=== PATIENT | female | born 1970 ===

== ENCOUNTER 2017-08-06 11:43 | Emergency (ER) | payer MEDICAID ==
[2017-08-06 11:43] VITALS: BMI 21.2
[2017-08-06 11:55] VITALS: TEMP 98.7
--- NOTE | 2017-08-06 12:41 | C.PDOC ---
History Of Present Illness 47 year old female presents to the ED with complaints of low back pain for two days that radiates down the left leg. Patient also notes dysuria since yesterday , and took Advil with no relief. She denies injury, incontinence, weakness, or numbness. Time Seen by Provider: 08/06/17 12:21 Chief Complaint (Nursing): Back Pain History Per: Patient History/Exam Limitations: no limitations Onset/Duration Of Symptoms: Days (2 days ) Current Symptoms Are (Timing): Still Present Quality Of Discomfort: "Pain" Previous Symptoms: None Exacerbating Factor(s): Nothing Recent travel outside of the [place]: No Past Medical History Reviewed: Historical Data, Nursing Documentation, Vital Signs Vital Signs: Last Vital Signs Temp 98.7 F 08/06/17 11:54 Pulse 99 H 08/06/17 11:54 Resp 18 08/06/17 11:54 BP 135/86 08/06/17 11:54 Pulse Ox 100 08/06/17 13:09 - Medical History PMH: Kidney Stones, Seizures (??not recently) Surgical History: No Surg Hx - [facility] Procedures CERVICAL LES CAUTERIZAT (09/26/14) Family History: States: Unknown Family Hx - Social History Hx Tobacco Use: No Hx Alcohol Use: No Hx Substance Use: No - Immunization History Hx Tetanus Toxoid Vaccination: No Hx Influenza Vaccination: No Hx Pneumococcal Vaccination: No Review Of Systems Constitutional: Negative for: Fever, Chills Cardiovascular: Negative for: Chest Pain Respiratory: Negative for: Shortness of Breath Gastrointestinal: Negative for: Nausea, Vomiting, Abdominal Pain Genitourinary: Positive for: Dysuria. Negative for: Incontinence Musculoskeletal: Positive for: Back Pain, Leg Pain (radiating from back ) Neurological: Negative for: Weakness, Numbness Physical Exam - Physical Exam Appears: Non-toxic, Other (Patient appears uncomfortable ) Skin: Warm, Dry Head: Atraumatic, Normacephalic Eye(s): bilateral: Normal Inspection, EOMI Nose: Normal Oral Mucosa: Moist Neck: Normal ROM, Supple Chest: Symmetrical, No Deformity Cardiovascular: Rhythm Regular, No Murmur Respiratory: Normal Breath Sounds, No Rales, No Rhonchi, No Wheezing Gastrointestinal/Abdominal: Soft, No Tenderness (no suprapubic tenderness), No Distention, No Guarding, No Rebound Back: Vertebral Tenderness (lumbosacral tenderness), No Decreased ROM, No Paraspinal Tenderness Extremity: Normal ROM, No Tenderness Neurological/Psych: Oriented x3, Normal Speech Gait: Steady ED Course And Treatment O2 Sat by Pulse Oximetry: 100 (room air ) Pulse Ox Interpretation: Normal Progress Note: UA was ordered and patient was given Tylenol, Flexeril, and Toradol. Reevaluation Time: 13:09 Reassessment Condition: Improved (Patient reports pain has much improved. She is ambulatory without signs of discomfort. UA was negative. Advise patient on rest, can apply heating pad to area and will be discharged with Rx Motrin and Flexeril) Disposition Counseled Patient/Family Regarding: Diagnosis, Need For Followup, Rx Given - Disposition Referrals: Kimber Curtis [Staff Provider] - Disposition: HOME/ ROUTINE Disposition Time: 13:15 Condition: STABLE Additional Instructions: Please take Motrin 600mh every 8 hours for pain Flexeril is muscle relaxant which can be taken every 8 hours as needed for muscular pain and spasm, caution can make you drowsy Follow up with your primary medical doctor or clinic in 2-5 days for further evaluation. Return to the emergency department at any time if symptoms persist or worsen Prescriptions: Cyclobenzaprine [Cyclobenzaprine HCl] 10 mg PO TID #21 tab Ibuprofen [Motrin] 600 mg PO Q8 #30 tab Instructions: Sciatica (ED) Forms: [facility] (Polish) - POA Present On Arrival: None - Clinical Impression Clinical Impression: Low back pain, Sciatica - PA / DELIVERY AND INSTALLATION SUBCONTRACTOR / Resident Statement MD/DO has reviewed & agrees with the documentation as recorded. - Scribe Statement The provider has reviewed the documentation as recorded by the Scribmaria guadalupe Landaverde All medical record entries made by the Liam were at my direction and personally dictated by me. I have reviewed the chart and agree that the record accurately reflects my personal performance of the history, physical exam, medical decision making, and the department course for this patient. I have also personally directed, reviewed, and agree with the discharge instructions and disposition.
[2017-08-06 12:58] LABS: RBC URINE 1 /hpf (0-3); URINE BILIRUBIN NEGATIVE (NEGATIVE); URINE BLOOD NEGATIVE (NEGATIVE); URINE COLOR Yellow (YELLOW); URINE GLUCOSE (UA) NORMAL (Normal); URINE KETONE NEGATIVE (NEGATIVE); URINE LEUKOCYTE ESTERASE NEG Leu/uL (Negative); URINE PROTEIN NEGATIVE (NEGATIVE); URINE UROBILINOGEN NORMAL mg/dL (0.2-1.0); WBC URINE < 1 /hpf (0-5)
[2017-08-06 13:26] VITALS: BP 128/84; PULSE 70; RESP 16; O2SAT 98
== END 2017-08-06 13:25 | disposition home or self-care (01) ==
LOC: C.ER 11:43
DX: M54.40 Lumbago with sciatica, unspecified side (principal)
CPT/HCPCS: 81001; 96372; 99283; J1885

== ENCOUNTER 2019-04-02 05:56 | Observation (INO) | payer MEDICAID ==
[2019-04-02 05:56] VITALS: BMI 21.2
[2019-04-02] MEDS ORDERED: Sodium Chloride 0.9% 1,000 ML IV STA (06:22)
--- NOTE | 2019-04-02 06:24 | C.PDOC ---
Time Seen by Provider: 04/02/19 06:04 Chief Complaint (Nursing): Back Pain Past Medical History Vital Signs: Last Vital Signs Temp 98.1 F 04/02/19 06:01 Pulse 70 04/02/19 06:01 Resp 14 04/02/19 06:01 BP 118/71 04/02/19 06:01 Pulse Ox 99 04/02/19 06:01 Primary Care Provider: Kimber Curtis - Medical History PMH: Kidney Stones, Seizures (??not recently) - [facility] Procedures CERVICAL LES CAUTERIZAT (09/26/14) Family History: States: Unknown Family Hx - Social History Hx Tobacco Use: No Hx Alcohol Use: No Hx Substance Use: No - Immunization History Hx Tetanus Toxoid Vaccination: No Hx Influenza Vaccination: No Hx Pneumococcal Vaccination: No ED Course And Treatment O2 Sat by Pulse Oximetry: 99 Disposition - Disposition
--- NOTE | 2019-04-02 06:25 | C.PDOC ---
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 Patient has not had any pain like the before in the past. Denies fever or chills. Time Seen by Provider: 04/02/19 06:04 Chief Complaint (Nursing): Back Pain History Per: Patient History/Exam Limitations: no limitations Onset/Duration Of Symptoms: Days (2) Current Symptoms Are (Timing): Still Present Quality Of Discomfort: Unable To Describe Associated Symptoms: Other (Vomitingx1) Recent travel outside of the [place]: No Past Medical History Reviewed: Historical Data, Nursing Documentation, Vital Signs Vital Signs: Last Vital Signs Temp 98.1 F 04/02/19 06:01 Pulse 70 04/02/19 06:01 Resp 14 04/02/19 06:01 BP 118/71 04/02/19 06:01 Pulse Ox 99 04/02/19 06:01 Primary Care Provider: Kimber Curtis - Medical History PMH: Kidney Stones, Seizures (??not recently) - [facility] Procedures CERVICAL LES CAUTERIZAT (09/26/14) Family History: States: Unknown Family Hx - Social History Hx Tobacco Use: No Hx Alcohol Use: No Hx Substance Use: No - Immunization History Hx Tetanus Toxoid Vaccination: No Hx Influenza Vaccination: No Hx Pneumococcal Vaccination: No Review Of Systems Constitutional: Negative for: Fever, Chills Cardiovascular: Negative for: Chest Pain, Palpitations Respiratory: Negative for: Cough, Shortness of Breath Gastrointestinal: Negative for: Nausea, Vomiting Musculoskeletal: Positive for: Other (Left flank pain) Neurological: Negative for: Weakness, Numbness Physical Exam - Physical Exam Appears: Non-toxic Skin: Normal Color, Warm Head: Atraumatic, Normacephalic Eye(s): bilateral: Normal Inspection Oral Mucosa: Moist Neck: Normal, Supple Chest: Symmetrical, No Tenderness Cardiovascular: Rhythm Regular Respiratory: Normal Breath Sounds, No Rales, No Rhonchi, No Wheezing Gastrointestinal/Abdominal: Soft, No Tenderness Back: CVA Tenderness (Left) Neurological/Psych: Oriented x3, Normal Speech ED Course And Treatment O2 Sat by Pulse Oximetry: 99 (Room air) Pulse Ox Interpretation: Normal Progress Note: CT abd/pel, blood work, and urinalysis ordered. IV fluids, toradol, and zofran administered. At 7 am case was signed out to ELYSIA Erazo, pending labs and CT. 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 - Scribe Statement The provider has reviewed the documentation as recorded by the Scribe Ezequiel Silveira All medical record entries made by the Scribe were at my direction and personally dictated by me. I have reviewed the chart and agree that the record accurately reflects my personal performance of the history, physical exam, medical decision making, and the department course for this patient. I have also personally directed, reviewed, and agree with the discharge instructions and disposition. Physician Patient Turnover Patient Signed Over To: Taylor Erazo Handoff Comments: pending CT abdomen and labs
[2019-04-02 06:27] LABS: HCG,QUALITATIVE URINE NEGATIVE (NEGATIVE)
[2019-04-02] MEDS ORDERED: LIDOCAINE IV STA (06:55)
[2019-04-02] MEDS ORDERED: SODIUM CHLORIDE 0.9% IV STA (06:55)
[2019-04-02 06:58] LABS: BASO # 0.1 K/uL (0.0-0.2); BASO % 0.4 % (0.0-2.0); EOS # 0.3 K/uL (0.0-0.7); HEMOGLOBIN 13.3 g/dL (11.0-16.0); LYMPH # 2.3 K/uL (1.0-4.3); LYMPH % 16.4 % (20.0-40.0); MEAN CELL VOLUME 93.5 fL (81.0-99.0); MEAN CORPUSCULAR HEMOGLOBIN 30.7 pg (27.0-31.0); MEAN CORPUSCULAR HGB CONC 32.8 g/dL (33.0-37.0); MEAN PLATELET VOLUME 8.9 fL (7.2-11.7); MONO # 1.2 K/uL (0.0-0.8); MONO % 8.6 % (0.0-10.0); NEUT % 72.6 % (50.0-75.0); RBC 4.34 Mil/uL (3.80-5.20); RED CELL DISTRIBUTION WIDTH 13.1 % (11.5-14.5); WHITE BLOOD COUNT 13.8 K/uL (4.8-10.8)
[2019-04-02 07:16] LABS: ALB/GLOB RATIO 1.4 (1.0-2.1); ALBUMIN 4.4 g/dL (3.5-5.0); ALT/SGPT 21 U/L (9-52); AST/SGOT 29 U/L (14-36); BLOOD UREA NITROGEN 18 mg/dL (7-17); CALCIUM 9.3 mg/dl (8.6-10.4); GFR NON-AFRICAN AMERICAN 53; LIPASE 141 U/L (23-300)
--- NOTE | 2019-04-02 08:23 | CT ---
Date of service: 04/02/2019 PROCEDURE: CT Abdomen and Pelvis without intravenous contrast HISTORY: left flank pain COMPARISON: None. TECHNIQUE: Without contrast.. Contrast dose: 0 Radiation dose: Total exam DLP = 301.51 mGy-cm. This CT exam was performed using one or more of the following dose reduction techniques: Automated exposure control, adjustment of the mA and/or kV according to patient size, and/or use of iterative reconstruction technique. FINDINGS: LOWER THORAX: Unremarkable. LIVER: Unremarkable. No gross lesion or ductal dilatation. GALLBLADDER AND BILE DUCTS: Cholelithiasis. No mural thickening or pericholecystic fluid. PANCREAS: Unremarkable. No gross lesion or ductal dilatation. SPLEEN: Unremarkable. ADRENALS: Unremarkable. No mass. KIDNEYS AND URETERS: Left hydroureteronephrosis. 5 mm obstructing calculus at left ureterovesical junction. 2 mm nonobstructing right lower pole renal calculus. No right hydronephrosis. No renal mass. No perinephric fluid. VASCULATURE: Unremarkable. No aortic aneurysm. No aortic atherosclerotic calcification or mural plaque present. BOWEL: Unremarkable. No obstruction. No gross mural thickening. APPENDIX: Unremarkable. Normal appendix. PERITONEUM: Unremarkable. No free fluid. No free air. LYMPH NODES: Unremarkable. No enlarged lymph nodes. BLADDER: Nondistended REPRODUCTIVE: Status post hysterectomy BONES: No acute fracture. OTHER FINDINGS: None. IMPRESSION: 5 mm obstructing calculus at left ureterovesical junction. Left hydroureteronephrosis. 2 mm nonobstructing right lower pole renal calculus. Cholelithiasis without evidence of cholecystitis. No additional abnormality. The preliminary findings for this examination were reported by [facility] at 7:43 a.m. on 04/02/2019. There is concurrence of this report with the preliminary findings.
[2019-04-02 08:40] LABS: SQUAMOUS EPITHIAL < 1 /hpf (0-5); URINE BILIRUBIN NEGATIVE (NEGATIVE); URINE BLOOD 2+ (NEGATIVE); URINE CLARITY Clear (Clear); URINE COLOR Yellow (YELLOW); URINE GLUCOSE (UA) NORMAL (Normal); URINE LEUKOCYTE ESTERASE NEG Leu/uL (Negative); URINE PROTEIN NEGATIVE (NEGATIVE); URINE UROBILINOGEN NORMAL mg/dL (0.2-1.0)
[2019-04-02] MEDS ORDERED: cefTRIAXone IV 1 gm in Dextros 50 ML IV STA (09:09)
[2019-04-02] MEDS ORDERED: Morphine 4 MG/ML VIAL ONE ×2 (09:20→11:32)
[2019-04-02] MEDS: Sodium Chloride 0.9% 1,000 ML IV SCH ×2 (11:31→21:02)
[2019-04-02] MEDS ORDERED: Sodium Chloride 0.9% 1,000 ML ONE (11:32)
[2019-04-02] MEDS ORDERED: Morphine 4 MG/ML VIAL IVP PRN (13:18)
--- NOTE | 2019-04-02 14:09 | CP.PCM.CON ---
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 Patient has not had any pain like this before in the past. Patient admits to having some subjective fever and chills,but did not take her temperature. Patient states she has history of kidney stones or past 3 years but has not experienced any pain or hematuria at any time. PATIENT UNDERWENT A CT OF THE ABDOMEN WHICH SHOWED A LEFT 5 MM STONE AT THE UVJ WITH HYDROURETERONEPHROSIS. PATIENT STATUS POST LEFT STENT PLACEMENT AND CYSTOSCOPY PER UROLOGIST TODAY. PATIENT SEEN POSTOP. PATIENT IS ON iv ROCEPHIN 1 G ONCE A DAY DAILY AND PRESENTLY ON iv GENTAMICIN 80 MG iv PIGGYBACK EVERY 8 HOURLY. 04/02/19 INFECTIOUS DISEASE CONSULTATION REQUESTED BY PMD FOR COMPLICATED UTI WITH UROLITHIASIS AND HYDROURETERONEPHROSIS S/P LEFT STENT PLACEMENT. PMH: Kidney Stones, Seizures (??not recently) PSH; HYSTERECTOMY -5YRS AGO FOR CINS. - [facility] Procedures CERVICAL LES CAUTERIZAT (09/26/14) Family History: States: Unknown Family Hx - Social History Hx Tobacco Use: No Hx Alcohol Use: No Hx Substance Use: No - Immunization History Hx Tetanus Toxoid Vaccination: No Hx Influenza Vaccination: No Hx Pneumococcal Vaccination: No Review of Systems - Constitutional Constitutional: As Per HPI, Chills, Fever - EENT Eyes: absent: Change in Vision Nose/Mouth/Throat: absent: Mouth Lesions - Cardiovascular Cardiovascular: absent: Chest Pain, Leg Edema - Respiratory Respiratory: absent: Cough, Dyspnea - Gastrointestinal Gastrointestinal: Abdominal Pain, Vomiting (X1 ). absent: Diarrhea, Nausea - Genitourinary Genitourinary: Dysuria, Flank Pain, Urinary Hesitance, Hx Renal/Bladder Calculi - Reproductive: Female Reproductive:Female: S/P Hysterectomy - Neurological Neurological: absent: Dizziness - Hematologic/Lymphatic Hematologic: As Per HPI. absent: Easy Bleeding, Easy Bruising Past Patient History - Past Medical History & Family History Past Medical History?: No - Past Social History Smoking Status: Never Smoked - NEUROLOGICAL Hx Seizures: Yes (??not recently) - RENAL Hx Kidney Stones: Yes - MUSCULOSKELETAL/RHEUMATOLOGICAL Hx Falls: No - GENITOURINARY/GYNECOLOGICAL Other/Comment: abnormal pap smear - PSYCHIATRIC Hx Substance Use: No - SURGICAL HISTORY Hx Surgeries: Yes Hx Hysterectomy: Yes - ANESTHESIA Hx Anesthesia: No Hx Anesthesia Reactions: No Hx Malignant Hyperthermia: No Meds Allergies/Adverse Reactions: Allergies Allergy/AdvReac Type Severity Reaction Status Date / Time No Known Allergies Allergy Verified 04/02/19 06:04 - Medications Medications: Current Medications Enoxaparin Sodium (Lovenox) 40 mg SC DAILY [facility] Sodium Chloride (Sodium Chloride 0.9%) 1,000 mls @ 100 mls/hr IV .Q10H [facility] Last Admin: 04/02/19 11:31 Dose: 100 mls/hr Ceftriaxone Sodium 1 gm/ (Sodium Chloride) 100 mls @ 100 mls/hr IVPB Q24H [facility]; Protocol Morphine Sulfate (Morphine) 4 mg IVP Q4 PRN PRN Reason: Pain, severe (8-10) Pantoprazole Sodium (Protonix Inj) 40 mg IVP DAILY [facility] Physical Exam - Constitutional Appears: No Acute Distress - Head Exam Head Exam: NORMAL INSPECTION - Eye Exam Eye Exam: EOMI, PERRL - ENT Exam ENT Exam: Normal Oropharynx - Neck Exam Neck exam: Positive for: Normal Inspection - Respiratory Exam Respiratory Exam: Clear to Auscultation Bilateral, NORMAL BREATHING PATTERN - Cardiovascular Exam Cardiovascular Exam: REGULAR RHYTHM, +S1, +S2 - GI/Abdominal Exam GI & Abdominal Exam: Normal Bowel Sounds, Soft, Tenderness (SUPRAPUBIC) - Extremities Exam Extremities exam: Positive for: pedal pulses present. Negative for: calf tende rness, pedal edema - Psychiatric Exam Psychiatric exam: Normal Mood - Skin Skin Exam: Normal Color, Warm Results - Vital Signs Recent Vital Signs: Last Vital Signs Temp 98.6 F 04/02/19 10:55 Pulse 81 04/02/19 10:55 Resp 20 04/02/19 10:55 BP 106/68 04/02/19 10:55 Pulse Ox 100 04/02/19 10:55 - Labs Result Diagrams: 04/02/19 06:55 04/02/19 06:55 Labs: Laboratory Results - last 24 hr 04/02/19 04/02/19 04/02/19 06:15 06:55 06:55 WBC 13.8 H D RBC 4.34 Hgb 13.3 Hct 40.6 MCV 93.5 D MCH 30.7 MCHC 32.8 L RDW 13.1 Plt Count 307 MPV 8.9 Neut % (Auto) 72.6 Lymph % (Auto) 16.4 L [place] % (Auto) 8.6 Eos % (Auto) 2.0 Baso % (Auto) 0.4 Neut # (Auto) 10.0 H Lymph # (Auto) 2.3 [place] # (Auto) 1.2 H Eos # (Auto) 0.3 Baso # (Auto) 0.1 Sodium 140 Potassium 3.5 L Chloride 103 Carbon Dioxide 23 Anion Gap 18 BUN 18 H Creatinine 1.1 Est GFR ( Amer) > 60 Est GFR (Non-Af Amer) 53 Random Glucose 99 Calcium 9.3 Total Bilirubin 0.7 AST 29 ALT 21 Alkaline Phosphatase 80 Total Protein 7.4 Albumin 4.4 Globulin 3.0 Albumin/Globulin Ratio 1.4 Lipase 141 Urine Color Yellow Urine Clarity Clear Urine pH 6.0 Ur Specific [place] 1.021 Urine Protein Negative Urine Glucose (UA) Normal Urine Ketones 1+ H Urine Blood 2+ H Urine Nitrate Negative Urine Bilirubin Negative Urine Urobilinogen Normal Ur Leukocyte Esterase Neg Urine WBC (Auto) 2 Urine RBC (Auto) 10 H Ur Squamous Epith Cells < 1 Urine HCG, Qual Negative - Imaging and Cardiology CT scan - abdomen Status: Report reviewed by me (SEE REPORT.) Assessment & Plan (1) Flank pain Assessment and Plan: PANCULTURES. UA/ URINE CULTURES PRIOR TO THE PROCEDURE. CONTINUE iv ROCEPHIN 1 G ONCE A DAY DAILY 04/02/19. PATIENT ON IV GENTAMICIN 80 MG iv PIGGYBACK EVERY 8 HOURLY PER STARTED POSTOPERATIVELY.04/02/19 FOLLOW-UP CULTURES TO ADJUST ANTIBIOTICS. F/U GENT-TROUGH LEVEL PRIOR TO THE THIRD DOSE. fOLLOW-UP RENAL FUNCTIONS CLOSELY. Status: Acute (2) Hydronephrosis with urinary obstruction due to renal calculus Assessment and Plan: S/P LEFT URETERAL STENTS/AND CYSTOSCOPY. Status: Acute (3) S/P cystoscopy with ureteral stent placement Assessment and Plan: S/P LT.UPJ OBSTRUCTIVE CALCULUS WITH HYDROURETERONEPHROSIS. S/P LT. STENT PLACEMENT 04/02/19. Status: Acute (4) Hx of hysterectomy, total Assessment and Plan: 5 years ago work [place] IN [employer]. Status: Acute
[2019-04-02] MEDS ORDERED: Lidocaine 2% Jelly (Uro-Jet) ONE (14:15)
[2019-04-02] MEDS ORDERED: Iohexol 240 (50 ml) ONE (14:15)
[2019-04-02] MEDS ORDERED: cefTRIAXone 1 gm 1 GM/100 ML BAG IVPB ONE (14:23)
[2019-04-02] MEDS ORDERED: Propofol 10 mg/ml Inj (20 ML) ONE (14:39)
[2019-04-02] MEDS ORDERED: Midazolam 2 MG/2 ML VIAL ONE (14:39)
[2019-04-02 15:23] LABS: URINE BILIRUBIN NEGATIVE (NEGATIVE); URINE BLOOD 1+ (NEGATIVE); URINE CLARITY Clear (Clear); URINE COLOR Straw (YELLOW); URINE GLUCOSE (UA) NORMAL (Normal); URINE LEUKOCYTE ESTERASE NEG Leu/uL (Negative); URINE PROTEIN NEGATIVE (NEGATIVE); URINE UROBILINOGEN NORMAL mg/dL (0.2-1.0)
[2019-04-02] MEDS ORDERED: HYDROmorphone 0.5 mg/0.5 ml ISec IVP PRN (15:27)
--- NOTE | 2019-04-02 15:44 | RAD ---
Date of service: 04/02/2019 PROCEDURE: Intraoperative fluoroscopy HISTORY: LEFT URETERAL STONE COMPARISON: Not available TECHNIQUE: Intraoperative fluoroscopy was provided for left retrograde pyeloureterography and ureteral stent insertion. Total time of fluoroscopy was 7.8 sec. Cumulative dose was 0.72999 mGy meter squared. FINDINGS: Multiple fluoroscopic spot films are submitted. IMPRESSION: Fluoroscopy provided.
--- NOTE | 2019-04-02 15:49 | RAD ---
Date of service: 04/02/2019 HISTORY: LEFT URETERAL STONE COMPARISON: None available. TECHNIQUE: 1 view obtained. FINDINGS: BOWEL: Normal bowel gas pattern. Mild retained feces. No masses or abnormal intra-abdominal calcifications. BONES: Normal. OTHER FINDINGS: None. IMPRESSION: Unremarkable
[2019-04-02] MEDS: Gentamicin 80 mg in 0.9% NS 80 MG/100 ML BAG IVPB SCH (16:20)
[2019-04-02] MEDS ORDERED: Potassium Chloride 20 mEq ER Tab PO STA (16:23)
[2019-04-02 16:54] VITALS: RESP 20
--- NOTE | 2019-04-02 23:08 | CP.PCM.HP ---
Past Patient History - Past Medical History & Family History Past Medical History?: No - Past Social History Smoking Status: Never Smoked - NEUROLOGICAL Hx Seizures: Yes (??not recently) - RENAL Hx Kidney Stones: Yes - MUSCULOSKELETAL/RHEUMATOLOGICAL Hx Falls: No - GENITOURINARY/GYNECOLOGICAL Other/Comment: abnormal pap smear - PSYCHIATRIC Hx Substance Use: No - SURGICAL HISTORY Hx Surgeries: Yes Hx Hysterectomy: Yes - ANESTHESIA Hx Anesthesia: No Hx Anesthesia Reactions: No Hx Malignant Hyperthermia: No Meds Allergies/Adverse Reactions: Allergies Allergy/AdvReac Type Severity Reaction Status Date / Time No Known Allergies Allergy Verified 04/02/19 06:04 Physical Exam - Constitutional Appears: Well - Head Exam Head Exam: ATRAUMATIC, NORMAL INSPECTION, NORMOCEPHALIC - Eye Exam Eye Exam: EOMI, Normal appearance, PERRL Pupil Exam: NORMAL ACCOMODATION, PERRL - ENT Exam ENT Exam: Mucous Membranes Moist, Normal Exam - Neck Exam Neck exam: Positive for: Normal Inspection - Respiratory Exam Respiratory Exam: Decreased Breath Sounds - Cardiovascular Exam Cardiovascular Exam: REGULAR RHYTHM, +S1, +S2 - GI/Abdominal Exam GI & Abdominal Exam: Diminished Bowel Sounds, Soft - Rectal Exam Rectal Exam: Deferred - Neurological Exam Neurological exam: Oriented x3 Results - Vital Signs Recent Vital Signs: Last Vital Signs Temp 98.5 F 04/02/19 16:52 Pulse 81 04/02/19 16:52 Resp 20 04/02/19 16:52 BP 115/73 04/02/19 16:52 Pulse Ox 95 04/02/19 16:52 - Labs Result Diagrams: 04/02/19 06:55 04/02/19 06:55 Labs: Laboratory Results - last 24 hr 04/02/19 04/02/19 04/02/19 06:15 06:55 06:55 WBC 13.8 H D RBC 4.34 Hgb 13.3 Hct 40.6 MCV 93.5 D MCH 30.7 MCHC 32.8 L RDW 13.1 Plt Count 307 MPV 8.9 Neut % (Auto) 72.6 Lymph % (Auto) 16.4 L [place] % (Auto) 8.6 Eos % (Auto) 2.0 Baso % (Auto) 0.4 Neut # (Auto) 10.0 H Lymph # (Auto) 2.3 [place] # (Auto) 1.2 H Eos # (Auto) 0.3 Baso # (Auto) 0.1 Sodium 140 Potassium 3.5 L Chloride 103 Carbon Dioxide 23 Anion Gap 18 BUN 18 H Creatinine 1.1 Est GFR ( Amer) > 60 Est GFR (Non-Af Amer) 53 Random Glucose 99 Calcium 9.3 Total Bilirubin 0.7 AST 29 ALT 21 Alkaline Phosphatase 80 Total Protein 7.4 Albumin 4.4 Globulin 3.0 Albumin/Globulin Ratio 1.4 Lipase 141 Urine Color Yellow Urine Clarity Clear Urine pH 6.0 Ur Specific [place] 1.021 Urine Protein Negative Urine Glucose (UA) Normal Urine Ketones 1+ H Urine Blood 2+ H Urine Nitrate Negative Urine Bilirubin Negative Urine Urobilinogen Normal Ur Leukocyte Esterase Neg Urine WBC (Auto) 2 Urine RBC (Auto) 10 H Ur Squamous Epith Cells < 1 Urine HCG, Qual Negative 04/02/19 15:13 WBC RBC Hgb Hct MCV MCH MCHC RDW Plt Count MPV Neut % (Auto) Lymph % (Auto) [place] % (Auto) Eos % (Auto) Baso % (Auto) Neut # (Auto) Lymph # (Auto) [place] # (Auto) Eos # (Auto) Baso # (Auto) Sodium Potassium Chloride Carbon Dioxide Anion Gap BUN Creatinine Est GFR ( Amer) Est GFR (Non-Af Amer) Random Glucose Calcium Total Bilirubin AST ALT Alkaline Phosphatase Total Protein Albumin Globulin Albumin/Globulin Ratio Lipase Urine Color Straw Urine Clarity Clear Urine pH 6.0 Ur Specific [place] 1.010 Urine Protein Negative Urine Glucose (UA) Normal Urine Ketones Trace Urine Blood 1+ H Urine Nitrate Negative Urine Bilirubin Negative Urine Urobilinogen Normal Ur Leukocyte Esterase Neg Urine WBC (Auto) Urine RBC (Auto) 1 Ur Squamous Epith Cells Urine HCG, Qual
[2019-04-03] MEDS: Gentamicin 80 mg in 0.9% NS 80 MG/100 ML BAG IVPB SCH ×3 (00:30→16:00)
[2019-04-03] MEDS: Enoxaparin 40 mg Syringe SC SCH (11:07)
[2019-04-03] MEDS: Sodium Chloride 0.9% 1,000 ML IV SCH ×2 (11:10→17:47)
--- NOTE | 2019-04-03 12:37 | CP.PCM.PN ---
Subjective - Date & Time of Evaluation Date of Evaluation: 04/03/19 Time of Evaluation: 12:37 - Subjective Subjective: AFEBRILE, VOIDING C/O TERMINAL DYSURIA URINE BLOOD TINGED NO ACUTE EVENTS OVERNIGHT. ON IV ABX. URINE BEING STRAINED PER . LABS REVIEWED Objective - Vital Signs/Intake and Output Vital Signs (last 24 hours): Temp Pulse Resp BP Pulse Ox 98.0 F 76 20 106/56 L 99 04/03/19 08:50 04/03/19 08:50 04/03/19 08:50 04/03/19 08:50 04/03/19 08:50 Intake and Output: 04/03/19 04/03/19 06:59 18:59 Intake Total 1100 Output Total 1150 Balance -50 - Medications Medications: Current Medications Enoxaparin Sodium (Lovenox) 40 mg SC DAILY [facility] Last Admin: 04/03/19 11:07 Dose: 40 mg Sodium Chloride (Sodium Chloride 0.9%) 1,000 mls @ 100 mls/hr IV .Q10H [facility] Last Admin: 04/03/19 11:10 Dose: Not Given Gentamicin Sulfate/Sodium Chloride (Gentamicin 80mg/100ml Ns) 80 mg in 100 mls @ 100 mls/hr IVPB Q8H ESTER; Protocol Last Admin: 04/03/19 09:18 Dose: 100 mls/hr Ceftriaxone Sodium 1 gm/ (Sodium Chloride) 100 mls @ 100 mls/hr IVPB Q24H ESTER; Protocol Last Admin: 04/03/19 11:12 Dose: 100 mls/hr Morphine Sulfate (Morphine) 4 mg IVP Q4 PRN PRN Reason: Pain, severe (8-10) Pantoprazole Sodium (Protonix Inj) 40 mg IVP DAILY [facility] Last Admin: 04/03/19 11:08 Dose: 40 mg - Labs Labs: 04/02/19 06:55 04/02/19 06:55 - Constitutional Appears: No Acute Distress - Head Exam Head Exam: NORMAL INSPECTION - Eye Exam Eye Exam: EOMI, PERRL - ENT Exam ENT Exam: Normal Oropharynx - Neck Exam Neck Exam: Normal Inspection - Cardiovascular Exam Cardiovascular Exam: REGULAR RHYTHM, +S1, +S2 - GI/Abdominal Exam GI & Abdominal Exam: Soft, Normal Bowel Sounds. absent: Tenderness - Extremities Exam Extremities Exam: Normal Capillary Refill. absent: Calf Tenderness, Pedal Edema - Back Exam Back Exam: CVA tenderness (L) - Neurological Exam Neurological Exam: Alert, Awake, CN II-XII Intact, Oriented x3, Reflexes Normal - Psychiatric Exam Psychiatric exam: Normal Mood - Skin Skin Exam: Normal Color, Warm Assessment and Plan (1) Flank pain Assessment & Plan: IMPROVING. S/P LEFT URETERAL STENT AND CYSTOSCOPY. Status: Acute (2) Hydronephrosis with urinary obstruction due to renal calculus Assessment & Plan: S/P lEFT URETERAL STENTS AND CYSTOSCOPY. fOLLOW-UP URINE CULTURES. CONTINUE iv ANTIBIOTICS-iv ROCEPHIN/AND iv GENTAMICIN.-DAY 2. Status: Acute (3) S/P cystoscopy with ureteral stent placement Status: Acute (4) Hx of hysterectomy, total Status: Acute
--- NOTE | 2019-04-03 23:21 | CP.PCM.PN ---
Subjective - Date & Time of Evaluation Date of Evaluation: 04/03/19 - Subjective Subjective: no c/o vomiting, no diarrhea, no fever Objective - Vital Signs/Intake and Output Vital Signs (last 24 hours): Temp Pulse Resp BP Pulse Ox 98.2 F 76 20 96/60 L 98 04/03/19 15:00 04/03/19 15:00 04/03/19 15:00 04/03/19 15:00 04/03/19 15:00 Intake and Output: 04/03/19 04/04/19 18:59 06:59 Intake Total 1040 Output Total 1000 Balance 40 - Medications Medications: Current Medications Enoxaparin Sodium (Lovenox) 40 mg SC DAILY [facility] Last Admin: 04/03/19 11:07 Dose: 40 mg Sodium Chloride (Sodium Chloride 0.9%) 1,000 mls @ 100 mls/hr IV .Q10H [facility] Last Admin: 04/03/19 17:47 Dose: Not Given Gentamicin Sulfate/Sodium Chloride (Gentamicin 80mg/100ml Ns) 80 mg in 100 mls @ 100 mls/hr IVPB Q8H [facility]; Protocol Last Admin: 04/03/19 16:00 Dose: 100 mls/hr Ceftriaxone Sodium 1 gm/ (Sodium Chloride) 100 mls @ 100 mls/hr IVPB Q24H [facility]; Protocol Last Admin: 04/03/19 11:12 Dose: 100 mls/hr Morphine Sulfate (Morphine) 4 mg IVP Q4 PRN PRN Reason: Pain, severe (8-10) Pantoprazole Sodium (Protonix Inj) 40 mg IVP DAILY [facility] Last Admin: 04/03/19 11:08 Dose: 40 mg - Labs Labs: 04/02/19 06:55 04/02/19 06:55 Assessment and Plan (1) Bleeding from vagina Status: Acute (2) Flank pain Status: Acute (3) Hx of hysterectomy, total Status: Acute (4) Hydronephrosis with urinary obstruction due to renal calculus Status: Acute (5) Low back pain Status: Acute (6) Miscarriage Status: Acute (7) S/P cystoscopy with ureteral stent placement Status: Acute (8) Sciatica Status: Acute (9) Vaginal bleeding Status: Acute - Assessment and Plan (Free Text) Plan: WBC 13.8 Potassium 3.5 BUN 18 Lovenox Gentamicin Ceftriaxone Morphine Protonix Moderate to high complexity of care. Plan of care discussed with patient &/or family & staff. Medications reviewed and reconciled. Labs reviewed. Vitals reviewed.
[2019-04-04] MEDS: Sodium Chloride 0.9% 1,000 ML IV SCH (03:30)
[2019-04-04 08:17] LABS: BASO % 0.4 % (0.0-2.0); EOS # 0.4 K/uL (0.0-0.7); EOS % 5.1 % (0.0-4.0); HEMOGLOBIN 12.6 g/dL (11.0-16.0); LYMPH % 27.3 % (20.0-40.0); MEAN CELL VOLUME 91.8 fL (81.0-99.0); MEAN CORPUSCULAR HEMOGLOBIN 31.5 pg (27.0-31.0); MEAN CORPUSCULAR HGB CONC 34.3 g/dL (33.0-37.0); MEAN PLATELET VOLUME 8.8 fL (7.2-11.7); MONO # 0.6 K/uL (0.0-0.8); MONO % 8.7 % (0.0-10.0); NEUT # 4.2 K/uL (1.8-7.0); NEUT % 58.5 % (50.0-75.0); RBC 3.98 Mil/uL (3.80-5.20); RED CELL DISTRIBUTION WIDTH 12.8 % (11.5-14.5); WHITE BLOOD COUNT 7.2 K/uL (4.8-10.8)
[2019-04-04 08:21] VITALS: TEMP 98.3
[2019-04-04 08:28] LABS: BLOOD UREA NITROGEN 11 mg/dL (7-17); CALCIUM 9.3 mg/dl (8.6-10.4); GFR NON-AFRICAN AMERICAN > 60
[2019-04-04] MEDS: Gentamicin 80 mg in 0.9% NS 80 MG/100 ML BAG IVPB SCH ×3 (08:59→16:08)
[2019-04-04] MEDS: Enoxaparin 40 mg Syringe SC SCH (09:24)
--- NOTE | 2019-04-04 11:08 | CP.PCM.PN ---
Subjective - Date & Time of Evaluation Date of Evaluation: 04/04/19 Time of Evaluation: 10:00 - Subjective Subjective: no c/o vomiting, no diarrhea, no fever Objective - Vital Signs/Intake and Output Vital Signs (last 24 hours): Temp Pulse Resp BP Pulse Ox 98.3 F 90 20 113/65 95 04/04/19 07:00 04/04/19 07:00 04/04/19 07:00 04/04/19 07:00 04/04/19 07:00 Intake and Output: 04/04/19 04/04/19 06:59 18:59 Intake Total 2260 Output Total 2100 Balance 160 - Medications Medications: Current Medications Enoxaparin Sodium (Lovenox) 40 mg SC DAILY [facility] Last Admin: 04/04/19 09:24 Dose: 40 mg Sodium Chloride (Sodium Chloride 0.9%) 1,000 mls @ 100 mls/hr IV .Q10H [facility] Last Admin: 04/04/19 03:30 Dose: 100 mls/hr Gentamicin Sulfate/Sodium Chloride (Gentamicin 80mg/100ml Ns) 80 mg in 100 mls @ 100 mls/hr IVPB Q8H [facility]; Protocol Last Admin: 04/04/19 08:59 Dose: 100 mls/hr Ceftriaxone Sodium 1 gm/ (Sodium Chloride) 100 mls @ 100 mls/hr IVPB Q24H [facility]; Protocol Last Admin: 04/04/19 11:04 Dose: 100 mls/hr Morphine Sulfate (Morphine) 4 mg IVP Q4 PRN PRN Reason: Pain, severe (8-10) Pantoprazole Sodium (Protonix Inj) 40 mg IVP DAILY [facility] Last Admin: 04/04/19 09:24 Dose: 40 mg - Labs Labs: 04/04/19 08:09 04/04/19 08:09 Assessment and Plan (1) Bleeding from vagina Status: Acute (2) Flank pain Status: Acute (3) Hx of hysterectomy, total Status: Acute (4) Hydronephrosis with urinary obstruction due to renal calculus Status: Acute (5) Low back pain Status: Acute (6) Miscarriage Status: Acute (7) S/P cystoscopy with ureteral stent placement Status: Acute (8) Sciatica Status: Acute (9) Vaginal bleeding Status: Acute - Assessment and Plan (Free Text) Plan: Lovenox Gentamicin Ceftriaxone Morphine Protonix Moderate to high complexity of care. Plan of care discussed with patient &/or family & staff . Medications reviewed and reconciled. Labs reviewed. Vitals reviewed.
--- NOTE | 2019-04-04 14:36 | CP.PCM.PN ---
Subjective - Date & Time of Evaluation Date of Evaluation: 04/04/19 Time of Evaluation: 14:36 - Subjective Subjective: AFEBRILE VSS NO ACUTE EVENTS OVERNIGHT. FEELING BETTER. LABS ; REVIEWED. URINE CULTURE -VE GROWTH Objective - Vital Signs/Intake and Output Vital Signs (last 24 hours): Temp Pulse Resp BP Pulse Ox 98.3 F 90 20 113/65 95 04/04/19 07:00 04/04/19 07:00 04/04/19 07:00 04/04/19 07:00 04/04/19 12:08 Intake and Output: 04/04/19 04/04/19 06:59 18:59 Intake Total 2260 Output Total 2100 Balance 160 - Medications Medications: Current Medications Enoxaparin Sodium (Lovenox) 40 mg SC DAILY [facility] Last Admin: 04/04/19 09:24 Dose: 40 mg Sodium Chloride (Sodium Chloride 0.9%) 1,000 mls @ 100 mls/hr IV .Q10H [facility] Last Admin: 04/04/19 03:30 Dose: 100 mls/hr Gentamicin Sulfate/Sodium Chloride (Gentamicin 80mg/100ml Ns) 80 mg in 100 mls @ 100 mls/hr IVPB Q8H [facility]; Protocol Last Admin: 04/04/19 08:59 Dose: 100 mls/hr Ceftriaxone Sodium 1 gm/ (Sodium Chloride) 100 mls @ 100 mls/hr IVPB Q24H [facility]; Protocol Last Admin: 04/04/19 11:04 Dose: 100 mls/hr Morphine Sulfate (Morphine) 4 mg IVP Q4 PRN PRN Reason: Pain, severe (8-10) Pantoprazole Sodium (Protonix Inj) 40 mg IVP DAILY [facility] Last Admin: 04/04/19 09:24 Dose: 40 mg - Labs Labs: 04/04/19 08:09 04/04/19 08:09 - Constitutional Appears: No Acute Distress - Head Exam Head Exam: NORMAL INSPECTION - Eye Exam Eye Exam: EOMI, PERRL - ENT Exam ENT Exam: Normal Oropharynx - Respiratory Exam Respiratory Exam: Clear to Ausculation Bilateral - Cardiovascular Exam Cardiovascular Exam: REGULAR RHYTHM, +S1, +S2 - GI/Abdominal Exam GI & Abdominal Exam: Soft, Normal Bowel Sounds - Extremities Exam Extremities Exam: Normal Capillary Refill. absent: Calf Tenderness, Pedal Edema - Neurological Exam Neurological Exam: Alert, Awake, CN II-XII Intact, Oriented x3 - Psychiatric Exam Psychiatric exam: Normal Mood - Skin Skin Exam: Normal Color, Warm Assessment and Plan (1) Flank pain Assessment & Plan: IMPROVED. Status: Acute (2) Hydronephrosis with urinary obstruction due to renal calculus Assessment & Plan: S/P lEFT URETERAL STENTS AND CYSTOSCOPY. fOLLOW-UP URINE CULTURES. CONTINUE iv ANTIBIOTICS-iv ROCEPHIN. DC iv GENTAMICIN.-DAY 3. WHEN CLEARED BY , PT CAN BE DISCHARGED ON PO CIPRO 500MG BID X 3 DAYS. SPOKE TO PASTRY ASSISTANT MS WONG/ . Status: Acute (3) S/P cystoscopy with ureteral stent placement Status: Acute (4) Hx of hysterectomy, total Status: Acute
--- NOTE | 2019-04-04 15:21 | CP.PCM.DIS ---
Provider - Provider Date of Admission: 04/02/19 09:40 Attending physician: Demetria Mack MD Consults: 04/02/19 08:34 Physician Consult Stat Comment: Consulting Provider: Michael Lund Consulting Physician: Michael Lund Reason for Consult: left renal calculus 04/02/19 13:35 Infectious Disease Consult Routine Comment: Consulting Provider: Steve Priest Consulting Physician: Steve Priest Reason for Consult: kidney stones Time Spent in preparation of Discharge (in minutes): 30 Hospital Course - Lab Results Lab Results: Micro Results 04/02/19 15:13 Urine,Clean Catch Urine Culture - Final No Growth (<1,000 CFU/ML) Most Recent Lab Values WBC 7.2 K/uL (4.8-10.8) 04/04/19 08:09 RBC 3.98 Mil/uL (3.80-5.20) 04/04/19 08:09 Hgb 12.6 g/dL (11.0-16.0) 04/04/19 08:09 Hct 36.6 % (34.0-47.0) 04/04/19 08:09 MCV 91.8 fL (81.0-99.0) 04/04/19 08:09 MCH 31.5 pg (27.0-31.0) H 04/04/19 08:09 MCHC 34.3 g/dL (33.0-37.0) 04/04/19 08:09 RDW 12.8 % (11.5-14.5) 04/04/19 08:09 Plt Count 300 K/uL (130-400) 04/04/19 08:09 MPV 8.8 fL (7.2-11.7) 04/04/19 08:09 Neut % (Auto) 58.5 % (50.0-75.0) 04/04/19 08:09 Lymph % (Auto) 27.3 % (20.0-40.0) 04/04/19 08:09 [place] % (Auto) 8.7 % (0.0-10.0) 04/04/19 08:09 Eos % (Auto) 5.1 % (0.0-4.0) H 04/04/19 08:09 Baso % (Auto) 0.4 % (0.0-2.0) 04/04/19 08:09 Neut # (Auto) 4.2 K/uL (1.8-7.0) 04/04/19 08:09 Lymph # (Auto) 2.0 K/uL (1.0-4.3) 04/04/19 08:09 [place] # (Auto) 0.6 K/uL (0.0-0.8) 04/04/19 08:09 Eos # (Auto) 0.4 K/uL (0.0-0.7) 04/04/19 08:09 Baso # (Auto) 0.0 K/uL (0.0-0.2) 04/04/19 08:09 Sodium 137 mmol/L (132-148) 04/04/19 08:09 Potassium 3.9 mmol/L (3.6-5.2) 04/04/19 08:09 Chloride 104 mmol/L (98-107) 04/04/19 08:09 Carbon Dioxide 26 mmol/L (22-30) 04/04/19 08:09 Anion Gap 12 (10-20) 04/04/19 08:09 BUN 11 mg/dL (7-17) 04/04/19 08:09 Creatinine 0.9 mg/dL (0.7-1.2) 04/04/19 08:09 Est GFR ( Amer) > 60 04/04/19 08:09 Est GFR (Non-Af Amer) > 60 04/04/19 08:09 Random Glucose 89 mg/dL (65-105) 04/04/19 08:09 Calcium 9.3 mg/dl (8.6-10.4) 04/04/19 08:09 Total Bilirubin 0.7 mg/dL (0.2-1.3) 04/02/19 06:55 AST 29 U/L (14-36) 04/02/19 06:55 ALT 21 U/L (9-52) 04/02/19 06:55 Alkaline Phosphatase 80 U/L (38-126) 04/02/19 06:55 Total Protein 7.4 g/dL (6.3-8.3) 04/02/19 06:55 Albumin 4.4 g/dL (3.5-5.0) 04/02/19 06:55 Globulin 3.0 gm/dL (2.2-3.9) 04/02/19 06:55 Albumin/Globulin Ratio 1.4 (1.0-2.1) 04/02/19 06:55 Lipase 141 U/L (23-300) 04/02/19 06:55 Urine Color Straw (YELLOW) 04/02/19 15:13 Urine Clarity Clear (Clear) 04/02/19 15:13 Urine pH 6.0 (5.0-8.0) 04/02/19 15:13 Ur Specific [place] 1.010 (1.003-1.030) 04/02/19 15:13 Urine Protein Negative mg/dL (NEGATIVE) 04/02/19 15:13 Urine Glucose (UA) Normal mg/dL (Normal) 04/02/19 15:13 Urine Ketones Trace mg/dL (NEGATIVE) 04/02/19 15:13 Urine Blood 1+ (NEGATIVE) H 04/02/19 15:13 Urine Nitrate Negative (NEGATIVE) 04/02/19 15:13 Urine Bilirubin Negative (NEGATIVE) 04/02/19 15:13 Urine Urobilinogen Normal mg/dL (0.2-1.0) 04/02/19 15:13 Ur Leukocyte Esterase Neg [place]/uL (Negative) 04/02/19 15:13 Urine WBC (Auto) 2 /hpf (0-5) 04/02/19 06:15 Urine RBC (Auto) 1 /hpf (0-3) 04/02/19 15:13 Ur Squamous Epith Cells < 1 /hpf (0-5) 04/02/19 06:15 Urine HCG, Qual Negative (NEGATIVE) 04/02/19 06:15 - Hospital Course Hospital Course: Patient admitted with flank pain and UTI status post abdominal CT which revealed 5 mm obstructing calculus at the left ureteral vesicular junctions family member at the bedside with some mild left hydroureteronephrosis with also other [address] Mcbride to go to the office tomorrow morning at 830 patient understand given p.o. antibiotic Cipro patient discharged after clearance from the urologist ulcer Dr. Jaime cleared the patient's making a urine culture has no growth patient's WBC was 7.2 hemoglobin was 12.6 Patient discharged on the pain medicine and Cipro Moderate to high complexity of care. Plan of care discussed with patient &/or family & staff. Medications reviewed and reconciled. Labs reviewed. Vitals reviewed. supervising law enforcement analyst weork up as out pt Discharge Exam - Head Exam Head Exam: NORMAL INSPECTION - Eye Exam Eye Exam: EOMI, Normal appearance, PERRL Pupil Exam: NORMAL ACCOMODATION, PERRL - Respiratory Exam Respiratory Exam: Decreased Breath Sounds - Cardiovascular Exam Cardiovascular Exam: REGULAR RHYTHM, +S1, +S2 - GI/Abdominal Exam GI & Abdominal Exam: Diminished Bowel Sounds, Soft - Rectal Exam Rectal Exam: Deferred - Neurological Exam Neurological exam: Oriented x3 Discharge Plan - Follow Up Plan Condition: GOOD Disposition: HOME/ ROUTINE Instructions: Flank Pain (DC), Ciprofloxacin and Fluocinolone, Acute Abdominal Pain (DC), Acute Abdominal Pain (GEN) Referrals: Steve Priest MD [Staff Provider] - Jose Francisco Mack MD [Staff Provider] - Michael Lund MD [Staff Provider] -
[2019-04-04] MEDS ORDERED: Pneumococcal 23-Valent Vaccine IM ONE (16:10)
[2019-04-04 16:36] VITALS: BP 118/64; PULSE 76; O2SAT 96
--- NOTE | 2019-04-07 11:43 | OP ---
PROCEDURE DATE: 04/02/2019 PREOPERATIVE DIAGNOSES: Urolithiasis, hematuria, severe renal colic, hydronephrosis, flank pain, not responding to any medicine. POSTOPERATIVE DIAGNOSES: Urolithiasis, hematuria, severe renal colic, hydronephrosis, flank pain, not responding to any medicine. PROCEDURE: Exam under anesthesia, cystoscopy, left retrograde pyelogram with left double-J stent insertion. SURGEON: Vladimir Lund MD BLOOD LOSS: Less than 10 mL. COMPLICATIONS: There were no complications. INDICATIONS: See history and physical for the details and see the consultation, has been dictated as a separate note. The patient is here now for the above-listed procedure. We discussed options. She presented with severe renal colic and an obstructing stone. I discussed observation. I discussed time. After discussing , the patient is in too much pain; therefore, we brought her to the operative room for the above-listed procedure. DESCRIPTION OF PROCEDURE: After obtaining informed consent, the patient was placed on table. Routine monitors were placed. Time-out was called to confirm the patient and positioning. Antibiotic prophylaxis was used. Cystoscope introduced via urethra. The ureteral orifices were identified. Retrograde pyelogram was performed, wire set up to the kidney and a double J-stent inserted . The patient tolerated the procedure well without complications. Vladimir Lund MD
== END 2019-04-04 16:56 | disposition home or self-care (01) ==
LOC: C.ER 05:56 → C.9E 09:40 → C.3T 10:26
PROVIDERS: ADMIT Internal Medicine Nephrology; ATTEND Internal Medicine Nephrology
DX: N13.2 Hydronephrosis with renal and ureteral calculous obstruction (principal); M54.30 Sciatica, unspecified side; N39.0 Urinary tract infection, site not specified
CPT/HCPCS: 36415; 52332; 74018; 74176; 80048; 80053; 81001; 83690; 84703; 85025; 87086; 96365; 96366; 96367; 96372; 96375; 96376; 99285; C1725; C1758; C1769; C9113; G0378; J0696; J1580; J1650; J1885; J2001; J2270; J2405; J2765; J7030

== ENCOUNTER 2019-04-08 09:56 | Day surgery (SDC) | payer MEDICAID | END 2019-04-08 16:24 | disposition home or self-care (01) | LOC: C.ER 09:56 → C.SDS 10:54 ==